=== PATIENT | male | born 1990 | race Caucasian/White ===

== ENCOUNTER 2022-03-11 09:10 | Emergency (ER) | payer OTHER ==
[~2022-03-11] VITALS: Ht 165.1 cm; Wt 85.7 kg
[2022-03-11 09:11] VITALS: BP 148/93
[2022-03-11] MEDS ORDERED: MORPHINE SULFATE 4 MG/ML SYR IVP ONE (09:40)
[2022-03-11] MEDS ORDERED: ceFAZolin 1,000 MG VIAL ONE ×2 (10:00→10:04)
[2022-03-11 10:17] LABS: BASOPHILS % (AUTO) 0.5 % (0.0-2.0); EOSINOPHILS # (AUTO) 0.2 K/uL (0-0.4); EOSINOPHILS % (AUTO) 2.5 % (0.0-4.0); HEMATOCRIT 48.9 % (36-52); LYMPHOCYTES # (AUTO) 1.5 K/uL (2.0-11.5); LYMPHOCYTES % (AUTO) 16.6 % (20.5-51.1); MEAN CORPUSCULAR HEMOGLOBIN 32 pg (27-31); MEAN CORPUSCULAR HGB CONC 35 g/dL (33-37); MEAN CORPUSCULAR VOLUME 90.9 fL (80-94); MONOCYTES # (AUTO) 0.8 K/uL (0.8-1.0); MONOCYTES % (AUTO) 9.2 % (1.7-9.3); NEUTROPHILS # (AUTO) 6.2 K/uL (1.8-7.7); NEUTROPHILS % (AUTO) 71.2 % (42.2-75.2); PLATELET COUNT (AUTO) 240 K/uL (140-450); RED BLOOD CELL COUNT(AUTO) 5.37 MIL/uL (4.20-6.10); RED CELL DISTRIBUTION WIDTH 12.7 % (11.6-13.7); WHITE BLOOD COUNT (AUTO) 8.8 K/uL (4.8-10.8)
[2022-03-11 11:30] VITALS: BP 112/72
[2022-03-11 11:35] LABS: ANION GAP 11.4 (8-16); CARBON DIOXIDE 28.6 mmol/L (21-32); CREATININE 0.9 mg/dL (0.6-1.3)
[2022-03-11] MEDS ORDERED: HYDR-5080 PO (12:42)
== END 2022-03-11 12:43 | disposition left against medical advice (07) ==
LOC: MED 09:10
DX: L02.511 Cutaneous abscess of right hand (principal); Z20.822 Contact with and (suspected) exposure to COVID-19; Z79.899 Other long term (current) drug therapy
CPT/HCPCS: 36415; 73140; 80048; 85025; 85651; 86140; 87426; 96365; 96375; 99284; J0690; J2270

== ENCOUNTER 2022-12-15 21:36 | Emergency (ER) | payer OTHER ==
[~2022-12-15] VITALS: Ht 165.1 cm; Wt 83.9 kg
[~2022-12-15 21:36] MED LIST: HYDR-5080 PO
[2022-12-15 22:03] VITALS: BP 143/84; PULSE 110; RESP 17; TEMP 98.1; O2SAT 97
[2022-12-16] MEDS ORDERED: HYDROcodone/APAP 5/325 MG 1 TAB TAB PO ONE (02:50)
[2022-12-16] MEDS ORDERED: ACET-8905 PO (04:30)
[2022-12-16] MEDS ORDERED: SULF-59 PO (04:30)
[2022-12-16 05:32] VITALS: BP 130/84; PULSE 102; RESP 17; TEMP 98.1; O2SAT 97
== END 2022-12-16 05:32 | disposition home or self-care (01) ==
LOC: MED 21:36
DX: L02.415 Cutaneous abscess of right lower limb (principal); Z79.899 Other long term (current) drug therapy
CPT/HCPCS: 99284

== ENCOUNTER 2022-12-18 11:55 | Emergency (ER) | payer OTHER ==
[~2022-12-18] VITALS: Ht 165.1 cm; Wt 83.9 kg
[~2022-12-18 11:55] MED LIST changes: +ACET-8905 PO; +SULF-59 PO
[2022-12-18 12:24] VITALS: BP 117/63; PULSE 85; RESP 16; TEMP 97.7; O2SAT 99
[2022-12-18 12:52] VITALS: BP 116/60; PULSE 85; RESP 16; TEMP 98; O2SAT 99
== END 2022-12-18 12:52 | disposition home or self-care (01) ==
LOC: MED 11:55
DX: L02.415 Cutaneous abscess of right lower limb (principal); Z79.899 Other long term (current) drug therapy
CPT/HCPCS: 99281

== ENCOUNTER 2023-05-27 13:28 | Emergency (ER) | payer MEDICAID, OTHER ==
[~2023-05-27] VITALS: Ht 165.1 cm; Wt 72.6 kg
[2023-05-27 13:30] VITALS: BP 151/74; PULSE 103; RESP 16; TEMP 98.7; O2SAT 98
[2023-05-27 15:08] VITALS: BP 151/74; PULSE 103; RESP 16; TEMP 98.7; O2SAT 98
== END 2023-05-27 15:08 | disposition home or self-care (01) ==
LOC: MED 13:28
DX: L30.9 Dermatitis, unspecified (principal); R03.0 Elevated blood-pressure reading, without diagnosis of hypertension; R22.33 Localized swelling, mass and lump, upper limb, bilateral; Z79.899 Other long term (current) drug therapy; Z79.2 Long term (current) use of antibiotics
CPT/HCPCS: 99282